=== PATIENT | female | born 1990 | race Caucasian/White ===

== ENCOUNTER 2016-12-01 15:36 | Emergency (ER) | payer MEDICAID ==
[~2016-12-01] VITALS: Ht 172.7 cm; Wt 54.5 kg
[~2016-12-01 15:36] MED LIST: PRENATAL VITAMI1 TA5 PO; PRENATAL1 TA2 PO; SYNTHROID0.1 MG/TAB PO; ZOLOFT 25MG25 MG PO
[2016-12-01] MEDS ORDERED: ZOLOFT 50MG50 MG PO (15:43)
[2016-12-01] MEDS ORDERED: CLEOCIN HCL300 MG PO (17:58)
[2016-12-01 18:03] VITALS: BP 93/60; PULSE 84; TEMP 99.1
== END 2016-12-01 18:08 | disposition home or self-care (01) ==
LOC: COL.ER 15:36
DX: K08.89 Other specified disorders of teeth and supporting structures (principal); R07.89 Other chest pain

== ENCOUNTER 2024-05-12 14:37 | Emergency (ER) | payer MEDICAID ==
[~2024-05-12] VITALS: Ht 170.2 cm; Wt 52.3 kg
[~2024-05-12 14:37] MED LIST changes: +CLEOCIN HCL300 MG PO; +ZOLOFT 50MG50 MG PO
[2024-05-12 14:46] VITALS: BP 149/95; PULSE 84; TEMP 98
[2024-05-13] MEDS ORDERED: CEFTIN500 MG PO (20:14)
== END 2024-05-12 16:31 | disposition left against medical advice (07) ==
LOC: COL.ER 14:37
DX: N39.0 Urinary tract infection, site not specified (principal)